=== PATIENT | female | born 1940 | race Caucasian/White ===

== ENCOUNTER 2018-01-31 07:00 | Emergency (ER) | payer MEDICARE, BC ==
--- NOTE | 2018-01-31 07:01 | EDM.PDOC ---
"ED HPI GENERAL MEDICAL PROBLEM - General Chief Complaint: Cardiovascular Problem Stated Complaint: IN BY AMBULANCE Time Seen by Provider: 01/31/18 07:01 Source of Information: Reports: Patient, EMS, Old Records, RN, RN Notes Reviewed History Limitations: Reports: No Limitations - History of Present Illness INITIAL COMMENTS - FREE TEXT/NARRATIVE: Pt presents to ER from home by ambulance with c/o waking this morning with mild chest pain/pressure and feeling very fatigued and generalized weakness. Pt denies crushing CP, cough, wheezing, shortness of breath, orthopnea, headache, visual changes, slurred speech, difficulty swallowing, abdominal pain, N/V/D, urinary Sx's, fever, or chills. Pt reports onset of acute renal failure last week requiring hemodialysis and states she had a heart attack while in the hospital in [place] last week. Onset: Unknown/Unsure Onset Date: 01/31/18 Duration: Constant Location: Reports: Chest, Generalized Quality: Reports: Pressure Severity: Mild Improves with: Reports: None Worsens with: Reports: None Associated Symptoms: Reports: No Other Symptoms - Related Data Allergies Allergy/AdvReac Type Severity Reaction Status Date / Time erythromycin base Allergy Cannot Verified 01/31/18 07:22 [Erythromycin Base] Remember nitrofurantoin Allergy Rash Verified 01/31/18 07:22 [From Macrobid] nitrofurantoin Allergy Rash Verified 01/31/18 07:22 macrocrystalline [From Macrobid] Penicillins Allergy Cannot Verified 01/31/18 07:22 Remember simvastatin Allergy Cannot Verified 01/31/18 07:22 Remember Sulfa (Sulfonamide Allergy Anaphylactic Verified 01/31/18 07:22 Antibiotics) Shock Home Meds: Home Meds Citalopram [Citalopram HBr] 40 mg PO DAILY 02/14/14 [History] amLODIPine Besylate [Amlodipine Besylate] 10 mg PO DAILY 02/14/14 [History] traZODone 100 mg PO BEDTIME 02/14/14 [History] Ascorbic Acid 500 mg PO BID 02/26/14 [History] Cyanocobalamin (Vitamin B12) [Vitamin B12] 1,000 mcg IM YONATAN 02/26/14 [History] Famotidine 20 mg PO BID 02/26/14 [History] Vilazodone [Viibryd] 40 mg PO DAILY 02/26/14 [History] buPROPion [Wellbutrin XL] 150 mg PO DAILY 09/23/14 [History] ARIPiprazole [Abilify] 2.5 mg PO DAILY 01/31/18 [History] Bumetanide 2 mg PO DAILY 01/31/18 [History] Cetirizine [ZyrTEC] 10 mg PO DAILY 01/31/18 [History] Clopidogrel Bisulfate [Clopidogrel] 75 mg PO DAILY 01/31/18 [History] Ferrous Gluconate 324 mg PO DAILY 01/31/18 [History] Levalbuterol Tartrate [Xopenex Hfa] 2 inhaler INH ASDIRECTED 01/31/18 [History] Metolazone 5 mg PO DAILY 01/31/18 [History] Metoprolol Tartrate 25 mg PO BID 01/31/18 [History] Mometasone/Formoterol [Dulera 100-5 MCG] 1 inh INH BID 01/31/18 [History] Multivitamin [Multivitamins] 1 tab PO DAILY 01/31/18 [History] Pantoprazole [ProTONIX] 40 mg PO DAILY 01/31/18 [History] Pregabalin [Lyrica] 25 mg PO BID 01/31/18 [History] atorvaSTATin Calcium [Atorvastatin Calcium] 20 mg PO DAILY 01/31/18 [History] hydrALAZINE [Apresoline] 75 mg PO BID 01/31/18 [History] Past Medical History HEENT History: Reports: Cataract, Impaired Vision, Other (See Below) (headaches) Cardiovascular History: Reports: Heart Murmur, High Cholesterol, Hypertension Respiratory History: Reports: Asthma, Bronchitis, Recurrent, COPD, Pneumonia, Recurrent Gastrointestinal History: Reports: Gastritis, GERD, GI Bleed, Hemorrhoids, Other (See Below) Other Gastrointestinal History: HYPOVOLEMIC SHOCK; SEVERE HEMORRHAGIC GASTRITIS Genitourinary History: Reports: Renal Calculus, Other (See Below) Other Genitourinary History: 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: Musculoskeletal History: Reports: Arthritis, Back Pain, Chronic, Fibromyalgia, Neck Pain, Chronic, Osteoarthritis Other Musculoskeletal History: BILATERAL HIP BURITIS Neurological History: Reports: Migraines Psychiatric History: Reports: Depression Endocrine/Metabolic History: Reports: Diabetes, Type II Hematologic History: Reports: B12 Deficiency, Blood Transfusion(s), Iron Deficiency Immunologic History: Reports: None Oncologic (Cancer) History: Reports: None Dermatologic History: Reports: None - Infectious Disease History Infectious Disease History: Reports: Measles, Mumps, Shingles - Past Surgical History HEENT Surgical History: Reports: Cataract Surgery, Oral Surgery, Tonsillectomy, Other (See Below) GI Surgical History: Reports: Appendectomy, Cholecystectomy, Colonoscopy, EGD, Other (See Below) Neurological Surgical History: Reports: None Musculoskeletal Surgical History: Reports: Knee Replacement Oncologic Surgical History: Reports: None Social & Family History - Family History Family Medical History: Noncontributory - Caffeine Use Caffeine Use: Reports: Coffee - Living Situation & Occupation Living situation: Reports: , with Spouse Occupation: Retired ED ROS GENERAL - Review of Systems Review Of Systems: ROS reveals no pertinent complaints other than HPI. ED EXAM, GENERAL - Physical Exam Exam: See Below Exam Limited By: No Limitations General Appearance: Alert, Lethargic, Obese, Other (chronically ill, but not toxic appearing) Eye Exam: Bilateral Eye: EOMI, Normal Inspection, PERRL Ears: Normal External Exam, Hearing Grossly Normal Nose: Normal Inspection, Normal Mucosa, No Blood Throat/Mouth: Normal Inspection, Normal Lips, Normal Oropharynx, Normal Voice, No Airway Compromise Head: Atraumatic, Normocephalic Neck: Normal Inspection, Supple, Non-Tender, Full Range of Motion Respiratory/Chest: No Respiratory Distress, Lungs Clear, No Accessory Muscle Use , Chest Non-Tender, Decreased Breath Sounds, Other (CV port at Rt upper chest, no associated tenderness or erythema) Cardiovascular: Normal Peripheral Pulses, No Edema, No JVD, Bradycardia GI/Abdominal: Normal Bowel Sounds, Soft, Non-Tender, No Distention (Female) Exam: Deferred Rectal (Female) Exam: Deferred Extremities: Normal Inspection, Non-Tender, No Pedal Edema. No: Joint Swelling Neurological: Alert, Oriented, CN II-XII Intact, Normal Cognition, No Motor/ Sensory Deficits, Other (generalized weakness, no focal deficits) Skin Exam: Warm, Dry, Intact, Normal Color, No Rash EKG INTERPRETATION EKG Date: 01/31/18 Time: 07:03 Rhythm: Other (Junctional escape rhythm) Rate (Beats/Min): 36 Bono: Normal P-Wave: Absent QRS: Normal ST-T: Normal Comparison: Change From Previous EKG (Previous 01/22/18 EKG's read as A-fib w/ nonspecific conduction delay, and another read as Wandering pacer w/conduction delay.) Course - Vital Signs Last Recorded V/S: Last Vital Signs Temp 36.2 C 01/31/18 07:25 Pulse 36 L 01/31/18 07:25 Resp 16 01/31/18 07:25 BP 95/44 L 01/31/18 07:25 Pulse Ox 95 01/31/18 07:25 - Orders/Labs/Meds Orders: Active Orders 24 hr Category Date Time Status Blood Glucose Check, Bedside [RC] ONETIME Care 01/31/18 07:05 Active Cardiac Monitoring [RC] . DIRECTED Care 01/31/18 08:04 Active EKG 12 Lead [EKG Documentation Completion] [RC] STAT Care 01/31/18 07:04 Active Insert Hooper Catheter [Insert Urinary Catheter] [OM.PC] Care 01/31/18 08:02 Ordered Stat Peripheral IV Care [RC] . DIRECTED Care 01/31/18 07:05 Active Urinary Catheter Assessment [RC] ASDIRECTED Care 01/31/18 08:03 Active CULTURE BLOOD [BC] Stat Lab 01/31/18 07:24 Received CULTURE BLOOD [BC] Stat Lab 01/31/18 07:33 Received CULTURE URINE [RM] Stat Lab 01/31/18 07:24 Received UA W/MICROSCOPIC [URIN] Stat Lab 01/31/18 07:24 Ordered Acetaminophen [Tylenol] Med 01/31/18 08:43 Once 650 mg PO NOW ONE DOPamine/Dextrose 5%-Water [DOPamine in D5W 400 MG/250 Med 01/31/18 07:45 Active ML] 400 mg in 250 ml IV TITRATE Sodium Chloride 0.9% [Saline Flush] Med 01/31/18 07:05 Active 10 ml FLUSH ASDIRECTED PRN Blood Culture x2 Reflex Set [OM.PC] Stat Oth 01/31/18 07:05 Ordered Peripheral IV Insertion Adult [OM.PC] Stat Oth 01/31/18 07:04 Ordered Medication Orders Dopamine HCl/Dextrose (Dopamine In D5w 400 Mg/250 Ml) 400 mg in 250 mls @ 15.309 mls/hr IV TITRATE CARLOS; Protocol Last Titration: 01/31/18 08:20 Dose: 9 mcg/kg/min, 27.556 mls/hr Titration: 01/31/18 08:00 Dose: 7 mcg/kg/min, 21.432 mls/hr Admin: 01/31/18 07:38 Dose: 5 mcg/kg/min, 15.309 mls/hr Sodium Chloride (Saline Flush) 10 ml FLUSH ASDIRECTED PRN PRN Reason: Keep Vein Open Last Admin: 01/31/18 07:11 Dose: 10 ml Labs: Laboratory Tests 01/31/18 01/31/18 01/31/18 Range/Units 07:08 07:08 07:08 WBC 11.0 H (5.0-10.0) 10^3/uL RBC 3.72 L (4.2-5.4) 10^6/uL Hgb 10.9 L (12.0-16.0) g/dL Hct 33.2 L (37.0-47.0) % MCV 89.2 (80-100) fL MCH 29.3 (27.0-34.0) pg MCHC 32.8 L (33.0-35.0) g/dL Plt Count 399 D (150-450) 10^3/uL Neut % (Auto) 50.2 (42.2-75.2) % Lymph % (Auto) 32.2 (20.5-50.1) % [place] % (Auto) 13.6 H (2-8) % Eos % (Auto) 3.5 H (1.0-3.0) % Baso % (Auto) 0.5 (0.0-1.0) % PT 9.3 (9.0-12.0) SEC INR 0.9 (0.9-1.2) APTT 25.2 (22.0-34.0) SEC Sodium 125 L D (135-145) mmol/L Potassium 5.2 H (3.6-5.0) mmol/L Chloride 91 L (101-111) mmol/L Carbon Dioxide 25.0 (21.0-31.0) mmol/L Anion Gap 14.2 BUN 39 H D (7-18) mg/dL Creatinine 3.9 H D (0.6-1.3) mg/dL Est Cr Clr Drug Dosing 9.99 mL/min Estimated GFR (MDRD) 11 BUN/Creatinine Ratio 10.00 Glucose 139 H (74-105) mg/dL POC Glucose (83-110) mg/dl Lactic Acid (0.5-2.2) mmol/L Calcium 8.5 (8.4-10.2) mg/dl Phosphorus 4.6 (2.5-4.6) mg/dL Magnesium 1.6 L (1.8-2.5) mg/dL Total Bilirubin 0.5 (0.2-1.0) mg/dL AST 22 (10-42) IU/L ALT 14 (10-60) IU/L Alkaline Phosphatase 59 (42-121) IU/L Creatine Kinase (26-174) IU/L Creatine Kinase Index (0-2.4) % CK-MB (CK-2) (0.4-4.7) ng/mL Troponin I < 0.02 (0.00-0.02) ng/ml B-Natriuretic Peptide 549 H (0-100) pg/ml Total Protein 6.5 L (6.7-8.2) g/dl Albumin 3.7 (3.2-5.5) g/dl Globulin 2.8 Albumin/Globulin Ratio 1.32 TSH, Ultra Sensitive (0.45-5.33) uIu/mL Urine Color (YELLOW) Urine Appearance (CLEAR) Urine pH (5.0-9.0) Ur Specific [place] (1.005-1.030) Urine Protein (NEGATIVE) Urine Glucose (UA) (NEGATIVE) Urine Ketones (NEGATIVE) Urine Occult Blood (NEGATIVE) Urine Nitrite (NEGATIVE) Urine Bilirubin (NEGATIVE) Urine Urobilinogen (0.2-1.0) mg/dL Ur Leukocyte Esterase (NEGATIVE) Urine RBC /HPF Urine WBC (0-5/HPF) /HPF Ur Epithelial Cells /HPF Urine Bacteria (0-FEW/HPF) /HPF 01/31/18 01/31/18 01/31/18 Range/Units 07:24 07:24 07:24 WBC (5.0-10.0) 10^3/uL RBC (4.2-5.4) 10^6/uL Hgb (12.0-16.0) g/dL Hct (37.0-47.0) % MCV (80-100) fL MCH (27.0-34.0) pg MCHC (33.0-35.0) g/dL Plt Count (150-450) 10^3/uL Neut % (Auto) (42.2-75.2) % Lymph % (Auto) (20.5-50.1) % [place] % (Auto) (2-8) % Eos % (Auto) (1.0-3.0) % Baso % (Auto) (0.0-1.0) % PT (9.0-12.0) SEC INR (0.9-1.2) APTT (22.0-34.0) SEC Sodium (135-145) mmol/L Potassium (3.6-5.0) mmol/L Chloride (101-111) mmol/L Carbon Dioxide (21.0-31.0) mmol/L Anion Gap BUN (7-18) mg/dL Creatinine (0.6-1.3) mg/dL Est Cr Clr Drug Dosing mL/min Estimated GFR (MDRD) BUN/Creatinine Ratio Glucose (74-105) mg/dL POC Glucose (83-110) mg/dl Lactic Acid 1.6 (0.5-2.2) mmol/L Calcium (8.4-10.2) mg/dl Phosphorus (2.5-4.6) mg/dL Magnesium (1.8-2.5) mg/dL Total Bilirubin (0.2-1.0) mg/dL AST (10-42) IU/L ALT (10-60) IU/L Alkaline Phosphatase (42-121) IU/L Creatine Kinase 174 (26-174) IU/L Creatine Kinase Index 1.5 (0-2.4) % CK-MB (CK-2) 2.60 (0.4-4.7) ng/mL Troponin I (0.00-0.02) ng/ml B-Natriuretic Peptide (0-100) pg/ml Total Protein (6.7-8.2) g/dl Albumin (3.2-5.5) g/dl Globulin Albumin/Globulin Ratio TSH, Ultra Sensitive 1.58 (0.45-5.33) uIu/mL Urine Color Yellow (YELLOW) Urine Appearance Cloudy (CLEAR) Urine pH 6.0 (5.0-9.0) Ur Specific [place] 1.010 (1.005-1.030) Urine Protein Negative (NEGATIVE) Urine Glucose (UA) Negative (NEGATIVE) Urine Ketones Negative (NEGATIVE) Urine Occult Blood Negative (NEGATIVE) Urine Nitrite Negative (NEGATIVE) Urine Bilirubin Negative (NEGATIVE) Urine Urobilinogen 0.2 (0.2-1.0) mg/dL Ur Leukocyte Esterase Trace H (NEGATIVE) Urine RBC 0-5 /HPF Urine WBC 5-10 H (0-5/HPF) /HPF Ur Epithelial Cells Rare /HPF Urine Bacteria Many H (0-FEW/HPF) /HPF 01/31/18 Range/Units 07:30 WBC (5.0-10.0) 10^3/uL RBC (4.2-5.4) 10^6/uL Hgb (12.0-16.0) g/dL Hct (37.0-47.0) % MCV (80-100) fL MCH (27.0-34.0) pg MCHC (33.0-35.0) g/dL Plt Count (150-450) 10^3/uL Neut % (Auto) (42.2-75.2) % Lymph % (Auto) (20.5-50.1) % [place] % (Auto) (2-8) % Eos % (Auto) (1.0-3.0) % Baso % (Auto) (0.0-1.0) % PT (9.0-12.0) SEC INR (0.9-1.2) APTT (22.0-34.0) SEC Sodium (135-145) mmol/L Potassium (3.6-5.0) mmol/L Chloride (101-111) mmol/L Carbon Dioxide (21.0-31.0) mmol/L Anion Gap BUN (7-18) mg/dL Creatinine (0.6-1.3) mg/dL Est Cr Clr Drug Dosing mL/min Estimated GFR (MDRD) BUN/Creatinine Ratio Glucose (74-105) mg/dL POC Glucose 147 H (83-110) mg/dl Lactic Acid (0.5-2.2) mmol/L Calcium (8.4-10.2) mg/dl Phosphorus (2.5-4.6) mg/dL Magnesium (1.8-2.5) mg/dL Total Bilirubin (0.2-1.0) mg/dL AST (10-42) IU/L ALT (10-60) IU/L Alkaline Phosphatase (42-121) IU/L Creatine Kinase (26-174) IU/L Creatine Kinase Index (0-2.4) % CK-MB (CK-2) (0.4-4.7) ng/mL Troponin I (0.00-0.02) ng/ml B-Natriuretic Peptide (0-100) pg/ml Total Protein (6.7-8.2) g/dl Albumin (3.2-5.5) g/dl Globulin Albumin/Globulin Ratio TSH, Ultra Sensitive (0.45-5.33) uIu/mL Urine Color (YELLOW) Urine Appearance (CLEAR) Urine pH (5.0-9.0) Ur Specific [place] (1.005-1.030) Urine Protein (NEGATIVE) Urine Glucose (UA) (NEGATIVE) Urine Ketones (NEGATIVE) Urine Occult Blood (NEGATIVE) Urine Nitrite (NEGATIVE) Urine Bilirubin (NEGATIVE) Urine Urobilinogen (0.2-1.0) mg/dL Ur Leukocyte Esterase (NEGATIVE) Urine RBC /HPF Urine WBC (0-5/HPF) /HPF Ur Epithelial Cells /HPF Urine Bacteria (0-FEW/HPF) /HPF Meds: Medications Generic Name Dose Route Start Last Admin Trade Name Freq PRN Reason Stop Dose Admin Dopamine HCl/Dextrose 400 mg in 250 mls @ 15.309 mls/hr 01/31/18 07:45 08:20 Dopamine In D5w 400 Mg/250 Ml IV 9 mcg/kg/min TITRATE CARLOS 27.556 mls/hr Titration Protocol 5 MCG/KG/MIN Sodium Chloride 10 ml 01/31/18 07:05 01/31/18 07:11 Saline Flush FLUSH 10 ml ASDIRECTED PRN Administration Keep Vein Open Discontinued Medications Generic Name Dose Route Start Last Admin Trade Name Freq PRN Reason Stop Dose Admin Aspirin 324 mg 01/31/18 08:01 01/31/18 08:06 Aspirin PO 01/31/18 08:02 324 mg ONETIME ONE Administration Atropine Sulfate 0.5 mg 01/31/18 07:06 01/31/18 07:11 Atropine IVPUSH 01/31/18 07:07 0.5 mg ONETIME ONE Administration Atropine Sulfate Confirm 01/31/18 07:04 01/31/18 07:35 Atropine 0.1 Mg/Ml Administered 01/31/18 07:05 1 mg Dose Administration 1 mg .ROUTE .STK-MED ONE Atropine Sulfate 1 mg 01/31/18 07:29 Atropine IVPUSH 01/31/18 07:30 ONETIME ONE Ceftriaxone Sodium 1 gm 01/31/18 08:05 01/31/18 08:08 Rocephin IVPUSH 01/31/18 08:06 1 gm ONETIME ONE Administration Clopidogrel Bisulfate 75 mg 01/31/18 08:01 01/31/18 08:06 Plavix PO 01/31/18 08:02 75 mg ONETIME ONE Administration Sodium Chloride 1,000 mls @ 999 mls/hr 01/31/18 07:16 01/31/18 07:23 Normal Saline IV 01/31/18 08:16 999 mls/hr .BOLUS ONE Administration - Radiology Interpretation Free Text/Narrative:: [facility] [place] [facility] Final Radiology Report Call: [phone] assistance Online chat: [email or web address] Name: ALBERTO MG Age: 77Years F Date: 01/31/2018 SSN: -- : [id number] Study: XR CHEST 1 VIEW Requesting Physician: ROHIT KABA Images: 1 Addl Studies: Provided Clinical History: Contrast: Contrast Medium: Contrast Amount: Contrast Method: Page 1 of 2 EXAM: XR Chest, 1 View EXAM DATE/TIME: 01/31/2018 7:37 AM CLINICAL HISTORY: The patient is 77 years old and is female; Pain; Chest pain TECHNIQUE: Frontal view of the chest. COMPARISON: CR - Chest 1V Frontal 2018-01-17 10:32 FINDINGS: Lungs: There is mild streaky bibasilar atelectasis. The lungs are otherwise clear. Pleural space: Unremarkable. No pneumothorax. Heart: The cardiomediastinal silhouette is stable in appearance allowing for differences in positioning. Mediastinum: See above. Bones/joints: Bony structures appear unchanged. Tubes, lines and devices: Right central line has been placed, with its tip in the region of the cavoatrial junction. Upper abdomen: The right hemidiaphragm is again elevated. Surgical clips again overlie the upper abdomen. IMPRESSION: Right central line placed since 01/17/18, without acute disease. ALBERTO MG | Final Radiology Report CONFIDENTIALITY STATEMENT This report is intended only for use by the referring physician, and only in accordance with law. If you received this in error, call [phone]. Page 2 of 2 Thank you for allowing us to participate in the care of your patient. Dictated and Authenticated by: Pilo Guzman MD 01/31/2018 8:17 AM Central Time - Re-Assessments/Exams Free Text/Narrative Re-Assessment/Exam: 01/31/18 08:43 Pt maintaining sBP in 100 to 105 range, and HR not less than 52. I was going to temp. pace the pt for transport, but she is maintaining HR in 50's and clinically appears improved. I will hold off on transcutaneous pacing, but transfer with pads in place and connect to start pacing enroute if her HR drops below 50. Departure - Departure Time of Disposition: 08:35 Disposition: DC/Tfer to Acute Hospital 02 Condition: Critical Clinical Impression: Complete heart block, Bradycardia with 31-40 beats per minute Hypotension Qualifiers: Hypotension type: unspecified hypotension type Qualified Code(s): I95.9 - Hypotension, unspecified - Discharge Information Forms: ED Department Discharge, Interfacility Transfer EMTALA - My Orders Last 24 Hours: My Active Orders 01/31/18 07:04 EKG 12 Lead [EKG Documentation Completion] [RC] STAT Peripheral IV Insertion Adult [OM.PC] Stat 01/31/18 07:05 Blood Glucose Check, Bedside [RC] ONETIME Peripheral IV Care [RC] . DIRECTED Sodium Chloride 0.9% [Saline Flush] 10 ml FLUSH ASDIRECTED PRN Blood Culture x2 Reflex Set [OM.PC] Stat 01/31/18 07:24 CULTURE BLOOD [BC] Stat CULTURE URINE [RM] Stat UA W/MICROSCOPIC [URIN] Stat 01/31/18 07:33 CULTURE BLOOD [BC] Stat 01/31/18 07:45 DOPamine/Dextrose 5%-Water [DOPamine in D5W 400 MG/250 ML] 400 mg in 250 ml IV TITRATE 01/31/18 08:02 Insert Hooper Catheter [Insert Urinary Catheter] [OM.PC] Stat 01/31/18 08:03 Urinary Catheter Assessment [RC] ASDIRECTED 01/31/18 08:04 Cardiac Monitoring [RC] . DIRECTED 01/31/18 08:43 Acetaminophen [Tylenol] 650 mg PO NOW ONE - Assessment/Plan Last 24 Hours: My Active Orders 01/31/18 07:04 EKG 12 Lead [EKG Documentation Completion] [RC] STAT Peripheral IV Insertion Adult [OM.PC] Stat 01/31/18 07:05 Blood Glucose Check, Bedside [RC] ONETIME Peripheral IV Care [RC] . DIRECTED Sodium Chloride 0.9% [Saline Flush] 10 ml FLUSH ASDIRECTED PRN Blood Culture x2 Reflex Set [OM.PC] Stat 01/31/18 07:24 CULTURE BLOOD [BC] Stat CULTURE URINE [RM] Stat UA W/MICROSCOPIC [URIN] Stat 01/31/18 07:33 CULTURE BLOOD [BC] Stat 01/31/18 07:45 DOPamine/Dextrose 5%-Water [DOPamine in D5W 400 MG/250 ML] 400 mg in 250 ml IV TITRATE 01/31/18 08:02 Insert Hooper Catheter [Insert Urinary Catheter] [OM.PC] Stat 01/31/18 08:03 Urinary Catheter Assessment [RC] ASDIRECTED 01/31/18 08:04 Cardiac Monitoring [RC] . DIRECTED 01/31/18 08:43 Acetaminophen [Tylenol] 650 mg PO NOW ONE"
[2018-01-31] MEDS ORDERED: Sodium Chloride 0.9% 10 ML Syringe FLUSH PRN (07:05)
[2018-01-31] MEDS ORDERED: Atropine 0.4 MG/ML SDV IVPUSH ONE ×2 (07:06→07:29)
[2018-01-31] MEDS: Atropine 0.1 MG/ML 10 ML Syringe ONE ×2 (07:11→07:35)
[2018-01-31] MEDS ORDERED: Sodium Chloride 0.9% 1,000 ML IV ONE (07:16)
[2018-01-31 07:33] VITALS: BP 95/44
[2018-01-31] MEDS ORDERED: DOPamine/Dextrose 5%-Water 400 MG/250 ML BAG IV SCH (07:45)
[2018-01-31] MEDS ORDERED: Clopidogrel 75 MG Tab PO ONE (08:01)
[2018-01-31] MEDS ORDERED: Aspirin 81 MG Tab.Chew PO ONE (08:01)
[2018-01-31 08:03] LABS: ANION GAP 14.2; CHLORIDE,CL 91 mmol/L (101-111); SODIUM,NA 125 mmol/L (135-145)
[2018-01-31] MEDS ORDERED: cefTRIAXone 1 GM Vial IVPUSH ONE (08:05)
[2018-01-31] MEDS ORDERED: Acetaminophen 325 MG Tab PO ONE (08:43)
== END 2018-01-31 09:28 ==
LOC: DL.ED 07:00
DX: I44.2 Atrioventricular block, complete (principal); I95.9 Hypotension, unspecified; E78.00 Pure hypercholesterolemia, unspecified; I10 Essential (primary) hypertension; J45.909 Unspecified asthma, uncomplicated; K21.9 Gastro-esophageal reflux disease without esophagitis; E11.9 Type 2 diabetes mellitus without complications; Z88.1 Allergy status to other antibiotic agents; Z88.8 Allergy status to other drugs, medicaments and biological substances; Z88.0 Allergy status to penicillin; Z88.2 Allergy status to sulfonamides; Z79.899 Other long term (current) drug therapy
CPT/HCPCS: 36415; 51703; 71045; 80053; 81001; 82550; 82553; 82962; 83605; 83735; 83880; 84100; 84443; 84484; 85025; 85610; 85730; 87040; 87086; 87088; 87186; 93005; 93010; 96365; 96366; 96375; 99284; 99285; A9270; J0461; J0696; J1265; J7030; J7050

== ENCOUNTER 2019-09-11 19:27 | Emergency (ER) | payer MEDICARE, BC ==
[2019-09-11 19:50] VITALS: BP 143/62; PULSE 92
--- NOTE | 2019-09-11 21:48 | EDM.PDOC ---
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 Improved now, describes sharp throbbing sensation, No blurring or change in vision. no headache nausea or vomiting. # weeks prior had secondary cataract surgery with laser due to floaters. Left Eye Pain Score (Numeric/FACES): 4 - Related Data Allergies Allergy/AdvReac Type Severity Reaction Status Date / Time nitrofurantoin Allergy Rash Verified 09/11/19 19:52 [From Macrobid] nitrofurantoin Allergy Rash Verified 09/11/19 19:52 macrocrystalline [From Macrobid] Penicillins Allergy Cannot Verified 09/11/19 19:52 Remember simvastatin Allergy Cannot Verified 09/11/19 19:52 Remember Sulfa (Sulfonamide Allergy Anaphylactic Verified 09/11/19 19:52 Antibiotics) Shock Home Meds: Home Meds Citalopram [Citalopram HBr] 40 mg PO DAILY 02/14/14 [History] amLODIPine Besylate [Amlodipine Besylate] 10 mg PO DAILY 02/14/14 [History] Ascorbic Acid 500 mg PO BID 02/26/14 [History] Cyanocobalamin (Vitamin B12) [Vitamin B12] 1,000 mcg IM YONATAN 02/26/14 [History] Famotidine 20 mg PO BID 02/26/14 [History] Vilazodone [Viibryd] 40 mg PO DAILY 02/26/14 [History] buPROPion [Wellbutrin XL] 150 mg PO DAILY 09/23/14 [History] ARIPiprazole [Abilify] 2.5 mg PO DAILY 01/31/18 [History] Bumetanide 2 mg PO DAILY 01/31/18 [History] Cetirizine [ZyrTEC] 10 mg PO DAILY 01/31/18 [History] Clopidogrel Bisulfate [Clopidogrel] 75 mg PO DAILY 01/31/18 [History] Ferrous Gluconate 324 mg PO DAILY 01/31/18 [History] Levalbuterol Tartrate [Xopenex Hfa] 2 inhaler INH ASDIRECTED 01/31/18 [History] Metoprolol Tartrate 25 mg PO BID 01/31/18 [History] Mometasone/Formoterol [Dulera 100-5 MCG] 1 inh INH BID 01/31/18 [History] Multivitamin [Multivitamins] 1 tab PO DAILY 01/31/18 [History] Pantoprazole [ProTONIX] 40 mg PO DAILY 01/31/18 [History] Pregabalin [Lyrica] 25 mg PO DAILY 01/31/18 [History] atorvaSTATin Calcium [Atorvastatin Calcium] 20 mg PO DAILY 01/31/18 [History] hydrALAZINE [Apresoline] 75 mg PO BID 01/31/18 [History] metOLazone [Metolazone] 5 mg PO DAILY 01/31/18 [History] Past Medical History HEENT History: Reports: Cataract, Impaired Vision, Other (See Below) Other HEENT History: corrective lenses Cardiovascular History: Reports: Heart Murmur, High Cholesterol, Hypertension, SC Respiratory History: Reports: Asthma, Bronchitis, Recurrent, COPD, Pneumonia, Recurrent Gastrointestinal History: Reports: Gastritis, GERD, GI Bleed, Hemorrhoids, Other (See Below) Other Gastrointestinal History: HYPOVOLEMIC SHOCK; SEVERE HEMORRHAGIC GASTRITIS Genitourinary History: Reports: Renal Calculus, Other (See Below) Other Genitourinary History: FREQUENT BLADDER INFECTIONS, Kidney failure 11/2017 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 [employer]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: Reports: Musculoskeletal History: Reports: Arthritis, Back Pain, Chronic, Fibromyalgia, Neck Pain, Chronic, Osteoarthritis Other Musculoskeletal History: BILATERAL HIP BURSITIS Neurological History: Reports: Migraines Psychiatric History: Reports: Depression Endocrine/Metabolic History: Reports: Diabetes, Type II Hematologic History: Reports: B12 Deficiency, Blood Transfusion(s), Iron Deficiency Immunologic History: Reports: None Oncologic (Cancer) History: Reports: None Dermatologic History: Reports: None - Infectious Disease History Infectious Disease History: Reports: Measles, Mumps, Shingles - Past Surgical History HEENT Surgical History: Reports: Cataract Surgery, Oral Surgery, Tonsillectomy, Other (See Below) Cardiovascular Surgical History: Reports: Pacer Respiratory Surgical History: Reports: None GI Surgical History: Reports: Appendectomy, Cholecystectomy, Colonoscopy, EGD, Other (See Below) Female Surgical History: Reports: Hysterectomy Neurological Surgical History: Reports: None Musculoskeletal Surgical History: Reports: Knee Replacement Oncologic Surgical History: Reports: None Social & Family History - Family History Family Medical History: Noncontributory - Tobacco Use Smoking Status *Q: Never Smoker Second Hand Smoke Exposure: No - Caffeine Use Caffeine Use: Reports: Coffee - Recreational Drug Use Recreational Drug Use: No - Living Situation & Occupation Living situation: Reports: , with Spouse Occupation: Retired ED ROS GENERAL - Review of Systems Review Of Systems: Comprehensive ROS is negative, except as noted in HPI. ED EXAM GENERAL W FULL EYE - Physical Exam Exam: See Below Exam Limited By: No Limitations General Appearance: Alert, Anxious, Mild Distress Eye Exam: Right Eye: Normal Inspection, Left Eye: Other (conjunctival hemorrhage bleb appearance, does not extend into iris, clear ouline visible), Bilateral Eye: EOMI, Normal Fundi, PERRL Visual Acuity (R) 20/: 50 Visual Acuity (L) 20/: 50 With Correction: Yes Eyelids: Bilateral: Normal Appearance Conjunctiva & Sclera: Right: Normal Appearance, Left: Subconjuctival Hemorrhage Extraocular Movements: Bilateral: Intact Pupils: Normal Accommodation Pupillary Size: Bilateral: 3 mm Posterior Chamber: Bilateral: Normal Funduscopic Ears: Normal External Exam Nose: Nasal Deformity Throat/Mouth: Normal Inspection Head: Atraumatic, Normocephalic Neck: Normal Inspection Respiratory/Chest: No Respiratory Distress, Lungs Clear Cardiovascular: Regular Rate, Rhythm Extremities: Normal Range of Motion Neurological: Alert, Oriented, Normal Cognition Skin Exam: Warm, Dry, Intact, Normal Color Course - Vital Signs Last Recorded V/S: Last Vital Signs Temp 98.8 F 09/11/19 19:45 Pulse 92 09/11/19 19:45 Resp 16 09/11/19 19:45 BP 143/62 H 09/11/19 19:45 Pulse Ox 95 09/11/19 19:45 Departure - Departure Time of Disposition: 21:27 Disposition: Home, Self-Care 01 Condition: Good Clinical Impression: Conjunctival hemorrhage of left eye - Discharge Information *PRESCRIPTION DRUG MONITORING PROGRAM REVIEWED*: No *COPY OF PRESCRIPTION DRUG MONITORING REPORT IN PATIENT VERENICE: No Instructions: Subconjunctival Hemorrhage Referrals: Fernando Go MD [Primary Care Provider] - Forms: ED Department Discharge Additional Instructions: rest head of bed elevated follow with Java Manager in am tylenol 500mg every 4 hours as needed for discomfort urgent follow up severe eye pain, nausea, vomiting or sudden change in vision Sepsis Event Note - Evaluation Sepsis Screening Result: No Definite Risk - Focused Exam Date Exam was Performed: 09/15/19 Time Exam was Performed: 02:29
== END 2019-09-11 21:40 | disposition home or self-care (01) ==
LOC: DL.ED 19:27
DX: H11.32 Conjunctival hemorrhage, left eye (principal); I10 Essential (primary) hypertension; I25.2 Old myocardial infarction; E11.9 Type 2 diabetes mellitus without complications; Z88.8 Allergy status to other drugs, medicaments and biological substances; Z88.2 Allergy status to sulfonamides; Z88.0 Allergy status to penicillin; Z79.899 Other long term (current) drug therapy
CPT/HCPCS: 99283

== ENCOUNTER 2023-02-05 13:58 | Emergency (ER) | payer MEDICARE, BC ==
[2023-02-05 14:20] VITALS: BP 244/95; PULSE 78
[2023-02-05] MEDS: Sodium Chloride 0.9% 10 ML Syringe FLUSH PRN ×2 (14:49→14:55)
[2023-02-05] MEDS ORDERED: hydrALAZINE 20 MG/ML SDV IVPUSH ONE (14:50)
[2023-02-05 14:51] LABS: BASOPHILS PERCENT AUTO 0.5 % (0.0-1.0); HEMATOCRIT 38.1 % (37.0-47.0); HEMOGLOBIN 12.4 g/dL (12.0-16.0); LYMPHOCYTES PERCENT AUTO 34.6 % (20.5-50.1); MEAN CORPUSCULAR HEMOGLOBIN 29.6 pg (27.0-34.0); MEAN CORPUSCULAR HGB CONC 32.5 g/dL (33.0-35.0); MEAN CORPUSCULAR VOLUME 90.9 fL (80-100); MONOCYTES PERCENT AUTO 9.8 % (2-8); NEUTROPHILS PERCENT AUTO 49.1 % (42.2-75.2); PLATELET COUNT,PLT 211 10^3/uL (150-450); RED BLOOD CELL COUNT 4.19 10^6/uL (4.2-5.4)
[2023-02-05 15:10] LABS: INR 0.9 (0.9-1.2); PROTHROMBIN TIME 9.7 SEC (9.0-12.0)
[2023-02-05 15:20] LABS: A/G RATIO 0.9; ALBUMIN 3.4 g/dL (3.4-5.0); ANION GAP 11.9 mEq/L (7-13); BILIRUBIN TOTAL 0.3 mg/dL (0.2-1.0); BUN/CREATININE RATIO 14.6 (No establ ref range); CALCIUM 9.3 mg/dL (8.5-10.1); CREATININE 1.64 mg/dL (0.55-1.02); EST CRCL DRUG DOSING (CG) 21.88 mL/min; POTASSIUM,K 3.9 mmol/L (3.5-5.1); PROTEIN TOTAL,TP 7.1 g/dL (6.4-8.2); TSH ULTRASENSITIVE 0.27 uIU/mL (0.36-3.74)
== END 2023-02-05 15:57 | disposition home or self-care (01) ==
LOC: DL.ED 13:58
DX: I16.0 Hypertensive urgency (principal); I10 Essential (primary) hypertension; I25.2 Old myocardial infarction; E78.00 Pure hypercholesterolemia, unspecified; J44.9 Chronic obstructive pulmonary disease, unspecified; K21.9 Gastro-esophageal reflux disease without esophagitis; M19.90 Unspecified osteoarthritis, unspecified site; E11.9 Type 2 diabetes mellitus without complications; Z88.1 Allergy status to other antibiotic agents; Z88.0 Allergy status to penicillin; Z88.8 Allergy status to other drugs, medicaments and biological substances; Z88.2 Allergy status to sulfonamides; Z79.899 Other long term (current) drug therapy; Z79.82 Long term (current) use of aspirin
CPT/HCPCS: 36415; 71045; 80053; 83880; 84443; 84484; 85025; 85610; 85730; 93005; 96374; 99283; J0360; 93010; 99284; J3490

== ENCOUNTER 2024-09-22 04:44 | Emergency (ER) | payer MEDICARE, BC ==
[2024-09-22 04:48] VITALS: BP 105/66; PULSE 76
[2024-09-22 05:34] LABS: BASOPHILS PERCENT AUTO 0.4 % (0.0-1.0); EOSINOPHILS PERCENT AUTO 3.2 % (1.0-3.0); HEMATOCRIT 41.9 % (37.0-47.0); HEMOGLOBIN 13.2 g/dL (12.0-16.0); LYMPHOCYTES PERCENT AUTO 24.4 % (20.5-50.1); MEAN CORPUSCULAR HEMOGLOBIN 28.9 pg (27.0-34.0); MEAN CORPUSCULAR HGB CONC 31.5 g/dL (33.0-35.0); MEAN CORPUSCULAR VOLUME 91.7 fL (80-100); MONOCYTES PERCENT AUTO 9.9 % (2-8); NEUTROPHILS PERCENT AUTO 62.1 % (42.2-75.2); PLATELET COUNT,PLT 230 10^3/uL (150-450); RED BLOOD CELL COUNT 4.57 10^6/uL (4.2-5.4); WHITE BLOOD CELL COUNT,WBC 8.1 10^3/uL (5.0-10.0)
[2024-09-22] MEDS: Acetaminophen 325 MG Tab PO ONE (05:48)
[2024-09-22 05:59] LABS: ALBUMIN 3.3 g/dL (3.4-5.0); ANION GAP 14.9 mEq/L (7-13); BILIRUBIN TOTAL 0.5 mg/dL (0.2-1.0); BUN/CREATININE RATIO 15.2 (No establ ref range); CALCIUM 9.2 mg/dL (8.5-10.1); CREATININE 2.5 mg/dL (0.55-1.02); EST CRCL DRUG DOSING (CG) 13.49 mL/min; POTASSIUM,K 3.9 mmol/L (3.5-5.1); PROTEIN TOTAL,TP 6.9 g/dL (6.4-8.2)
[2024-09-22 06:06] LABS: A/G RATIO 0.92
== END 2024-09-22 07:21 | disposition home or self-care (01) ==
LOC: DL.ED 04:44
DX: S80.01XA Contusion of right knee, initial encounter (principal); I10 Essential (primary) hypertension; K21.9 Gastro-esophageal reflux disease without esophagitis; E11.9 Type 2 diabetes mellitus without complications; J45.909 Unspecified asthma, uncomplicated; M19.90 Unspecified osteoarthritis, unspecified site; Z88.0 Allergy status to penicillin; Z88.2 Allergy status to sulfonamides; Z88.8 Allergy status to other drugs, medicaments and biological substances; Z79.899 Other long term (current) drug therapy; Z79.82 Long term (current) use of aspirin; Z79.4 Long term (current) use of insulin; Z90.49 Acquired absence of other specified parts of digestive tract; Z90.710 Acquired absence of both cervix and uterus; W18.09XA Striking against other object with subsequent fall, initial encounter; Y92.091 Bathroom in other non-institutional residence as the place of occurrence of the external cause; Y93.89 Activity, other specified
CPT/HCPCS: 36415; 73560; 80053; 85025; 99283; 99284; A9270

== ENCOUNTER 2024-09-23 04:49 | Inpatient (IN) | payer MEDICARE, BC ==
[2024-09-23 17:41] LABS: BASOPHILS PERCENT AUTO 0.3 % (0.0-1.0); EOSINOPHILS PERCENT AUTO 1.5 % (1.0-3.0); HEMATOCRIT 41.1 % (37.0-47.0); HEMOGLOBIN 13.1 g/dL (12.0-16.0); LYMPHOCYTES PERCENT AUTO 10.5 % (20.5-50.1); MEAN CORPUSCULAR HEMOGLOBIN 29.1 pg (27.0-34.0); MEAN CORPUSCULAR HGB CONC 31.9 g/dL (33.0-35.0); MEAN CORPUSCULAR VOLUME 91.3 fL (80-100); MONOCYTES PERCENT AUTO 7.6 % (2-8); NEUTROPHILS PERCENT AUTO 80.1 % (42.2-75.2); PLATELET COUNT,PLT 186 10^3/uL (150-450)
[2024-09-23 17:55] LABS: ANION GAP 15.7 mEq/L (7-13); BLOOD UREA NITROGEN,BUN 29 mg/dL (7-18); CALCIUM 9.4 mg/dL (8.5-10.1); CARBON DIOXIDE,CO2 29 mmol/L (21-32); CHLORIDE,CL 102 mmol/L (98-107); CREATININE 2.07 mg/dL (0.55-1.02); EST CRCL DRUG DOSING (CG) 16.29 mL/min; ESTIMATED GFR 23 mL/min (>=60); GLUCOSE RANDOM 112 mg/dL (70-99); POTASSIUM,K 3.7 mmol/L (3.5-5.1); SODIUM,NA 143 mmol/L (136-145)
[2024-09-23] MEDS ORDERED: Melatonin 3 MG Tab PO PRN (18:29)
[2024-09-23] MEDS ORDERED: Ondansetron 4 MG Tab.DIS PO PRN (18:29)
[2024-09-23] MEDS ORDERED: Docusate Sodium 100 MG Cap PO PRN (18:29)
[2024-09-23] MEDS ORDERED: Diclofenac Sodium 1% Gel 100 GM Tube TOP PRN (18:47)
[2024-09-23] MEDS ORDERED: traZODone 50 MG Tab PO PRN ×2 (18:47→19:53)
[2024-09-23] MEDS ORDERED: Cyanocobalamin (Vitamin B12) 1,000 MCG/ML SDV IM SCH (19:00)
[2024-09-23] MEDS: cefTRIAXone 2 GM Vial IVPUSH SCH (19:01)
[2024-09-23] MEDS: Acetaminophen 325 MG Tab PO PRN (19:08)
[2024-09-23] MEDS ORDERED: Formoterol/Mometasone 100-5 MCG 8.8 GM Inhaler INH SCH (21:00)
[2024-09-23] MEDS: Sodium Chloride 0.9% 1,000 ML IV SCH (21:08)
[2024-09-23] MEDS: Famotidine 20 MG Tab PO ONE (21:13)
[2024-09-23] MEDS: atorvaSTATin 20 MG Tab PO SCH (21:14)
[2024-09-23] MEDS: Metoprolol Tartrate 25 MG Tab PO ONE (21:14)
[2024-09-23] MEDS: Heparin Sodium 5,000 Units/ML Vial SUBCUT SCH (21:16)
[2024-09-23] MEDS: traZODone 50 MG Tab PO ONE (23:31)
[2024-09-24] MEDS: oxyCODONE 5 MG Tab PO ONE (03:03)
[2024-09-24] MEDS ORDERED: Carboxymethylcellulose Sodium 1% Ophth Gel 0.4 ML UD EYEBOTH PRN (08:11)
[2024-09-24] MEDS: atorvaSTATin 20 MG Tab PO SCH (08:13)
[2024-09-24] MEDS: Metoprolol Tartrate 25 MG Tab PO SCH (08:14)
[2024-09-24] MEDS ORDERED: Albuterol 6.7 GM Inhaler INH PRN (08:17)
[2024-09-24] MEDS: Non-Formulary Medication 1 Each (Fluticasone Propion/Salmeterol [Advair 250-50 Diskus] 1 E IH SCH (08:22)
[2024-09-24] MEDS ORDERED: Non-Formulary Medication 1 Each (Aripiprazole [Abilify] 5 MG Tablet) PO SCH (09:00)
[2024-09-24] MEDS ORDERED: Pantoprazole 40 MG Tab.CR PO SCH (09:00)
[2024-09-24] MEDS ORDERED: Aspirin 81 MG Tab.EC PO SCH (09:00)
[2024-09-24 09:13] LABS: BASOPHILS PERCENT AUTO 0.3 % (0.0-1.0); EOSINOPHILS PERCENT AUTO 2.3 % (1.0-3.0); HEMATOCRIT 36.5 % (37.0-47.0); HEMOGLOBIN 11.8 g/dL (12.0-16.0); LYMPHOCYTES PERCENT AUTO 20.7 % (20.5-50.1); MEAN CORPUSCULAR HEMOGLOBIN 29.4 pg (27.0-34.0); MEAN CORPUSCULAR HGB CONC 32.3 g/dL (33.0-35.0); MONOCYTES PERCENT AUTO 9.9 % (2-8); NEUTROPHILS PERCENT AUTO 66.8 % (42.2-75.2); PLATELET COUNT,PLT 166 10^3/uL (150-450); RED BLOOD CELL COUNT 4.01 10^6/uL (4.2-5.4); WHITE BLOOD CELL COUNT,WBC 9.2 10^3/uL (5.0-10.0)
[2024-09-24] MEDS: Isosorbide Mononitrate 60 MG Tab.ER PO SCH (09:13)
[2024-09-24] MEDS: Multivitamins with Iron/Calcium/Folic Acid/Minerals Tab PO SCH (09:13)
[2024-09-24] MEDS: Citalopram 20 MG Tab PO SCH (09:15)
[2024-09-24] MEDS: Insulin Glarg,Human.Rec.Analog 100 Unit/ML 10 ML Vial SUBCUT SCH (09:22)
[2024-09-24 09:26] LABS: CALCIUM 8.6 mg/dL (8.5-10.1); CREATININE 1.75 mg/dL (0.55-1.02); EST CRCL DRUG DOSING (CG) 19.26 mL/min; POTASSIUM,K 3.4 mmol/L (3.5-5.1)
[2024-09-24 09:30] LABS: ANION GAP 15.4 mEq/L (7-13)
[2024-09-24] MEDS: Loratadine 10 MG Tab PO SCH (10:27)
[2024-09-24] MEDS: Potassium Chloride 20 MEQ in Premix Bag 1 BAG IV ONE (10:28)
[2024-09-24 16:07] VITALS: BP 171/74; PULSE 80
[2024-09-25] MEDS ORDERED: Pregabalin 50 MG Cap PO SCH (09:00)
[2024-09-25] MEDS ORDERED: Famotidine 20 MG Tab PO SCH (09:00)
[2024-09-25] MEDS ORDERED: Ferrous Sulfate 325 MG Tab PO SCH (09:00)
== END 2024-09-24 17:05 | disposition home or self-care (01) | DRG 690 ==
LOC: DL.MS 04:49 → OBSVTOIN 18:27
PROVIDERS: ADMIT Internal Medicine; ATTEND Internal Medicine
DX: N39.0 Urinary tract infection, site not specified (principal); N17.9 Acute kidney failure, unspecified; Z16.11 Resistance to penicillins; Z66 Do not resuscitate; B96.20 Unspecified Escherichia coli [E. coli] as the cause of diseases classified elsewhere; J44.9 Chronic obstructive pulmonary disease, unspecified; G89.29 Other chronic pain; M19.90 Unspecified osteoarthritis, unspecified site; F32.A Depression, unspecified; K21.9 Gastro-esophageal reflux disease without esophagitis; N18.9 Chronic kidney disease, unspecified; I12.9 Hypertensive chronic kidney disease with stage 1 through stage 4 chronic kidney disease, or unspecified chronic kidney disease; E11.22 Type 2 diabetes mellitus with diabetic chronic kidney disease; E87.6 Hypokalemia; H54.7 Unspecified visual loss; R30.0 Dysuria; I10 Essential (primary) hypertension; N20.0 Calculus of kidney; M54.9 Dorsalgia, unspecified; G47.00 Insomnia, unspecified; M79.7 Fibromyalgia; M54.2 Cervicalgia; G43.909 Migraine, unspecified, not intractable, without status migrainosus; E53.8 Deficiency of other specified B group vitamins; I25.2 Old myocardial infarction; Z95.0 Presence of cardiac pacemaker; E78.00 Pure hypercholesterolemia, unspecified; Z96.659 Presence of unspecified artificial knee joint; E11.9 Type 2 diabetes mellitus without complications; Z88.0 Allergy status to penicillin; Z88.2 Allergy status to sulfonamides; Z98.49 Cataract extraction status, unspecified eye; Z88.8 Allergy status to other drugs, medicaments and biological substances; Z79.4 Long term (current) use of insulin; Z79.899 Other long term (current) drug therapy; Z90.49 Acquired absence of other specified parts of digestive tract; Z90.710 Acquired absence of both cervix and uterus
CPT/HCPCS: 36415; 80048; 82947; 83605; 84145; 85025; 99222; 99239; A9270-GY; J0696; J1644; J1815-GY; J3480; J7030

== ENCOUNTER 2025-03-08 16:07 | Emergency (ER) | payer MEDICARE, BC ==
[2025-03-08 16:22] LABS: BASOPHILS PERCENT AUTO 0.2 % (0.0-1.0); EOSINOPHILS PERCENT AUTO 3.0 % (1.0-3.0); LYMPHOCYTES PERCENT AUTO 34.9 % (20.5-50.1); MONOCYTES PERCENT AUTO 8.8 % (2-8); NEUTROPHILS PERCENT AUTO 53.1 % (42.2-75.2); PLATELET COUNT,PLT 203 10^3/uL (150-450); RED BLOOD CELL COUNT 4.01 10^6/uL (4.2-5.4); WHITE BLOOD CELL COUNT,WBC 6.3 10^3/uL (5.0-10.0)
[2025-03-08] MEDS: fentaNYL 100 MCG/2 ML SDV IVPUSH ONE (16:27)
[2025-03-08 16:41] LABS: ALANINE AMINOTRANSFERASE,ALT 38.0 U/L (14-59); ASPARTATE AMNIOTRANSFERASE,AST 31.0 U/L (15-37); BILIRUBIN TOTAL 0.5 mg/dL (0.2-1.0); BLOOD UREA NITROGEN,BUN 35.0 mg/dL (7-18); CARBON DIOXIDE,CO2 30.0 mmol/L (21-32); CHLORIDE,CL 103.0 mmol/L (98-107); CREATININE 2.09 mg/dL (0.55-1.02); EST CRCL DRUG DOSING (CG) 16.21 mL/min; GLUCOSE RANDOM 196.0 mg/dL (70-99); POTASSIUM,K 4.5 mmol/L (3.5-5.1); PROTEIN TOTAL,TP 6.5 g/dL (6.4-8.2); SODIUM,NA 138.0 mmol/L (136-145)
[2025-03-08 16:42] LABS: A/G RATIO 1.03; ESTIMATED GFR 23.0 mL/min (>=60); LACTIC ACID 1.4 mmol/L (0.4-2.0)
[2025-03-08 16:45] LABS: INR 0.9 (0.9-1.2); PTT,PARTIAL THROMBOPLSTIN TIME 22.7 SEC (22.0-34.0)
[2025-03-08] MEDS ORDERED: Lactated Ringers 1,000 ML IV SCH (17:00)
[2025-03-08] MEDS: fentaNYL 100 MCG/2 ML SDV ONE (17:29)
[2025-03-08 17:53] LABS: APPEARANCE,URINE CLEAR (CLEAR); GLUCOSE,URINE NEGATIVE (NEGATIVE); OCCULT BLOOD,URINE TRACE-INTACT (NEGATIVE)
[2025-03-08 18:03] LABS: EPITHELIAL CELLS,URINE FEW /HPF (NOT SEEN)
[2025-03-08] MEDS: Iopamidol 612 MG/ML 100 ML Bottle IVPUSH ONE (18:07)
[2025-03-08 18:18] VITALS: BP 184/79; PULSE 63
== END 2025-03-08 19:38 | disposition home or self-care (01) ==
LOC: DL.ED 16:07
DX: S06.0X0A Concussion without loss of consciousness, initial encounter (principal); E11.9 Type 2 diabetes mellitus without complications; E78.00 Pure hypercholesterolemia, unspecified; I10 Essential (primary) hypertension; I25.2 Old myocardial infarction; K21.9 Gastro-esophageal reflux disease without esophagitis; Z88.8 Allergy status to other drugs, medicaments and biological substances; I44.7 Left bundle-branch block, unspecified; I51.7 Cardiomegaly; Z88.2 Allergy status to sulfonamides; Z88.0 Allergy status to penicillin; Z79.899 Other long term (current) drug therapy; Z95.0 Presence of cardiac pacemaker; Z79.82 Long term (current) use of aspirin; Z79.4 Long term (current) use of insulin; Z90.49 Acquired absence of other specified parts of digestive tract; Z90.710 Acquired absence of both cervix and uterus; W18.39XA Other fall on same level, initial encounter; Y93.89 Activity, other specified
CPT/HCPCS: 36415; 70450; 71260; 72125; 72128; 72131; 74177; 80053; 81001; 83605; 84484; 85025; 85610; 85730; 87086; 87088; 87186; 93005; 93010; 96361; 96374; 96375; 99284; 99285; J0696; J3010; J7030; Q9967